=== PATIENT | female | born 1960 | race Two or more races ===

== ENCOUNTER → 2020-07-20 | Outpatient (CLI) | payer OTHER, MEDICAID | END | disposition home or self-care (01) | LOC: LAB 13:30 | PROVIDERS: ATTEND Obstetrics & Gynecology | DX: N84.1 Polyp of cervix uteri (principal) ==

== ENCOUNTER → 2023-06-25 | Outpatient (CLI) | payer BC, MEDICAID ==
[~2023-06-25] VITALS: Ht 157.5 cm; Wt 80.3 kg
[~2023-06-25] MED LIST: ADENOSINE 67 MG in GIVE UN-DILUTED 0 ML IV STA
== END | disposition home or self-care (01) ==
LOC: XYW 07:47
PROVIDERS: ATTEND Internal Medicine
DX: R00.2 Palpitations (principal); R06.02 Shortness of breath; R06.09 Other forms of dyspnea; R63.8 Other symptoms and signs concerning food and fluid intake
CPT/HCPCS: 78452; 93017; A9500; J0153